=== PATIENT | male | born 1980 | race Caucasian/White ===

== ENCOUNTER 2023-05-19 09:28 | Outpatient (CLI) | payer BC, SELFPAY | END 2023-05-19 09:29 | disposition home or self-care (01) | PROVIDERS: PCP Family Medicine; Visit Provider Emergency Medicine | DX: R36.1 Hematospermia (principal); R10.9 Unspecified abdominal pain | CPT/HCPCS: 80076; 86140; 87491; 87591 ==

== ENCOUNTER 2023-06-10 09:13 | Outpatient (CLI) | payer BC, SELFPAY | END 2023-06-10 09:14 | disposition home or self-care (01) | PROVIDERS: PCP Family Medicine; Visit Provider Emergency Medicine | DX: Z00.00 Encounter for general adult medical examination without abnormal findings (principal); I10 Essential (primary) hypertension; Z13.1 Encounter for screening for diabetes mellitus; Z13.6 Encounter for screening for cardiovascular disorders | CPT/HCPCS: 80061 ==

== ENCOUNTER 2023-07-08 16:17 | Outpatient (CLI) | payer BC, SELFPAY | END 2023-07-08 16:18 | disposition home or self-care (01) | LOC: LKVREF 16:18 | PROVIDERS: PCP Emergency Medicine; Visit Provider Emergency Medicine | DX: F41.9 Anxiety disorder, unspecified (principal); F32.A Depression, unspecified | CPT/HCPCS: 84443 ==

== ENCOUNTER 2025-03-05 08:34 | Outpatient (CLI) | payer BC, SELFPAY | END 2025-03-05 08:35 | disposition home or self-care (01) | LOC: NFLDREF 03-06 15:42 | PROVIDERS: PCP Emergency Medicine; Referring Provider Emergency Medicine; Visit Provider Emergency Medicine | DX: Z00.00 Encounter for general adult medical examination without abnormal findings (principal); E78.5 Hyperlipidemia, unspecified | CPT/HCPCS: 80053; 80061 ==

== ENCOUNTER 2025-06-07 06:23 | Day surgery (SDC) | payer BC, SELFPAY ==
[2025-06-07] VITALS (8 sets, daily range): BP systolic 114–141; BP diastolic 85–99; PULSE 61–72; RESP 16; TEMP 36.3–36.6; O2SAT 94–97; BMI 34.8
[2025-06-07] MEDS: SODIUM CHLORIDE 0.9 % (FLUSH) 10 ML SYRINGE IVF (07:07)
[2025-06-07] MEDS: LACTATED RINGERS 1000 ML 1,000 ML 100 ML IV (07:07)
--- NOTE | 2025-06-07 07:28 | W.PM.H&PU ---
History & Physical Update History & Physical Update H&P Reviewed and patient assessed: No changes noted
--- NOTE | 2025-06-07 07:28 | PM.GSPRC ---
Operative Note Date of procedure: 06/07/25 Pre-op diagnosis: Desire for permanent sterilization Post-op diagnosis: Same Type of Procedure: Vasectomy Indications: The patient is a 44-year-old male who desires sterilization. Procedure Description: After discussing the risks and benefits of the procedure, the patient signed informed consent.? The operative site was marked and the patient was brought to the operating room and placed on the operating table in supine position.? Care was taken to pad the patient's pressure points.?? The patient was then given sedation by anesthesia.?? The operative site was then prepped and draped in the usual sterile fashion.? A time-out was then performed. I began on the right side. The spermatic cord was grasped and the vas deferens isolated. 1% lidocaine was injected into the scrotal skin and around the vas deferens. Once the skin was anesthetized, a stab incision was made overlying the vas. Blunt dissection was taken down to the vas. The vas deferens was then grasped and pulled out the incision. Careful dissection was then done to isolate a 3 cm segment of vas deferens from the surrounding blood vessels and tissue. Once this was done the vas was clipped proximally and distally and sharply transected with scissors. The ends were cauterized. This was passed off for pathology. The wound was examined for hemostasis which was adequate. The same procedure was then performed on the left, again isolating a 3 cm segment of vas deferens, cauterizing the ends after clipping, and sending for pathology. A small bleeding vessel from the skin edge was cauterized. Gauze dressings were then applied. The patient tolerated the procedure well ? The patient was then woken and transported to the recovery area in stable condition. ? Anesthesia: MAC Surgeon: Rika Phelan MD Estimated blood loss (mL): 1 Specimen: Other Additional Specimen Information: 1. Right vas deferens 2. Left vas deferens Condition: stable Disposition: same day
[2025-06-07] MEDS: BUPIVACAINE 0.5% 30 ML INJECTION (07:51)
[2025-06-07] MEDS: LIDOCAINE 1% MDV 20 ML INJECTION (07:51)
--- NOTE | 2025-06-07 08:13 | P.ANES_ITS ---
Anesthesia Charges Start Date/Time Anesthesia Start Date: 06/07/25 Anesthesia Start Time: 07:37 Stop Date/Time Anesthesia Stop Date: 06/07/25 Anesthesia Stop Time: 08:15 Coding CPT Codes CPT Codes: ANESTH VASECTOMY - 41782 ([id number]) P2 - PATIENT W/MILD SYST DISEASE, QZ - ADVERTISING ANALYST SVC W/O IMPROVEMENT LEAD BY
--- NOTE | 2025-06-07 08:13 | W.ANESCHARGE ---
Anesthesia Charges Start Date/Time Anesthesia Start Date: 06/07/25 Anesthesia Start Time: 07:37 Stop Date/Time Anesthesia Stop Date: 06/07/25 Anesthesia Stop Time: 08:15 Coding CPT Codes CPT Codes: ANESTH VASECTOMY - 18378 ([id number]) P2 - PATIENT W/MILD SYST DISEASE, QZ - NET SOFTWARE ARCHITECT SVC W/O FOREIGN BROADCAST SPECIALIST BY
== END 2025-06-07 09:35 | disposition home or self-care (01) ==
PROVIDERS: PCP Physician Assistant Medical; Visit Provider Surgery
PROC: (CPT 55250; principal; 2025-06-07 07:30)
DX: Z30.2 Encounter for sterilization (principal)
CPT/HCPCS: 55250; 00921; 88302; J2003; J0665; J1100; J1885; J2250; J2405; J2704; J3010; J3490; J7120